=== PATIENT | female | born 1975 | race Caucasian/White ===

== ENCOUNTER → 2016-07-20 | Outpatient (CLI) | payer OTHER ==
[~2016-07-20] MED LIST: DIPH25CA5 PO
[2016-07-20 17:03] LABS: PROLACTIN 4.61 ng/mL
== END | disposition home or self-care (01) ==
LOC: C.LAB1850 15:07
PROVIDERS: ATTEND Obstetrics & Gynecology
DX: N97.9 Female infertility, unspecified (principal)

== ENCOUNTER → 2017-01-08 | Outpatient (CLI) | payer OTHER ==
[~2017-01-08] MED LIST changes: +BND25 PO; -DIPH25CA5 PO
[2017-01-08 15:35] LABS: HEMATOCRIT 43.9 % (37-47); MEAN CELL VOLUME 88.7 fL (80-100); MEAN CORPUSCULAR HEMOGLOBIN 30.9 pg (25-34); MEAN CORPUSCULAR HGB CONC 34.9 g/dl (32-36); MEAN PLATELET VOLUME 10.6 fL (7.4-10.4); PLATELET COUNT 246 K/uL (130-400); RED BLOOD COUNT 4.95 M/uL (4.2-5.4); WHITE BLOOD COUNT 5.75 K/uL (4.8-10.8)
[2017-01-08 16:19] LABS: RUBELLA SCREEN IgG (AT CCH) IMMUNE (IMMUNE)
== END | disposition home or self-care (01) ==
LOC: C.LAB1850 14:20
PROVIDERS: ATTEND Specialist
DX: Z13.21 Encounter for screening for nutritional disorder (principal); Z13.0 Encounter for screening for diseases of the blood and blood-forming organs and certain disorders involving the immune mechanism; Z11.9 Encounter for screening for infectious and parasitic diseases, unspecified; Z11.3 Encounter for screening for infections with a predominantly sexual mode of transmission

== ENCOUNTER → 2017-01-15 | Outpatient (CLI) | payer OTHER ==
[~2017-01-15] MED LIST changes: +MethylPREDNISolone HOME PACK 16 MG TAB PO SCH
--- NOTE | 2017-01-15 12:04 | DIAGNOSTIC IMAGING REPORT ---
HYSTEROSALPINGOGRAM CLINICAL HISTORY: FERTILITY TESTING. COMPARISON STUDY: No previous studies for comparison. Fluoroscopy time: 0.4 minutes. TECHNIQUE: Hysterosalpingogram was performed by Dr. Gonzalez. The cervix was cannulated and 30 cc of iodinated contrast was instilled into the uterine cavity. FINDINGS: 4 fluoroscopic images were obtained. Uterine morphology is normal. Both fallopian tubes were patent with free spillage bilaterally. Note was made of venous intravasation. IMPRESSION: 1. Patent bilateral fallopian tubes. 2. Incidental note of venous intravasation. Electronically signed by: Brad Cortez M.D. 01/15/2017 12:02 PM Dictated Date/Time: 01/15/2017 12:01 PM
--- NOTE | 2017-01-15 13:28 | OPERATIVE REPORT ---
DATE OF OPERATION: 01/15/2017 PREOPERATIVE DIAGNOSIS: Infertility. POSTOPERATIVE DIAGNOSIS: Same. PROCEDURE: Hysterosalpingogram. SURGEON: Dr. Gonzalez. RADIOLOGIST: Dr. Cortez. PROCEDURE IN DETAIL: The patient was identified verbally and by darrin and the procedure that was to be performed was confirmed. The patient had taken her preoperative doxycycline. She also notes that she has ALLERGY TO X-RAY DYE. She was instructed and given a Medrol Dosepak by Willi Tompkins. That allergy was identified, confirmed and the patient understands the risks of proceeding. Last menstrual period was January 06. The patient was placed in a frog leg position. Speculum was placed and cervix was cleaned out with Betadine. The anterior lip of the cervix was grasped with an Allis. The introducer was placed into the cervix and the patient was prepared for this study. The dye was injected into the uterus without difficulty and the patient tolerated the procedure well. The procedure was terminated when the appropriate pictures were taken. All instruments removed from the vagina and hemostasis was noted to be excellent. Upon sitting up, it was immediately noticed that the patient had some red areas underneath her ears bilaterally, spreading down underneath her chin, on her neck and a large red patch of redness on her chest. The patient does note that when she gets anxious and nervous, she does have red areas there; however, she inspected these in the mirror and thought they were a little bit more than what she normally has. She noted no itching, no shortness of breath, no chest pain, and no other concerns. The rest of her body was inspected. There were no other red patches noted. The patient was encouraged to continue her Medrol Dosepak as prescribed, to finish her doxycycline as prescribed. She will sit in the waiting room for the next hour to make sure that we do not have further increase in her red patches or develop itching and shortness of breath. If she does, then she was instructed to proceed immediately to the Emergency Department for evaluation. I attest to the content of the Intraoperative Record and any orders documented therein. Any exception s are noted below.
== END | disposition home or self-care (01) ==
LOC: C.RAD 10:36
PROVIDERS: ATTEND Obstetrics & Gynecology
DX: Z31.41 Encounter for fertility testing (principal)

== ENCOUNTER → 2017-04-26 | Outpatient (CLI) | payer OTHER ==
[~2017-04-26] MED LIST changes: -BND25 PO; +DIPH25CA5 PO; -MethylPREDNISolone HOME PACK 16 MG TAB PO SCH
== END | disposition home or self-care (01) ==
LOC: C.LAB1850 16:37
PROVIDERS: ATTEND Obstetrics & Gynecology
DX: Z32.00 Encounter for pregnancy test, result unknown (principal)

== ENCOUNTER → 2017-04-29 | Outpatient (CLI) | payer OTHER | END | disposition home or self-care (01) | LOC: C.LAB1850 15:05 | PROVIDERS: ATTEND Obstetrics & Gynecology | DX: O09.00 Supervision of pregnancy with history of infertility, unspecified trimester (principal) ==

== ENCOUNTER → 2017-05-23 | Outpatient (CLI) | payer OTHER | END | disposition home or self-care (01) | LOC: C.LABSPEC 14:10 | PROVIDERS: ATTEND Obstetrics & Gynecology | DX: O09.521 Supervision of elderly multigravida, first trimester (principal) ==

== ENCOUNTER → 2017-05-31 | Outpatient (CLI) | payer OTHER ==
[~2017-05-31] MED LIST changes: +CHOL1000 PO; +OMEG10007 PO; +PRENTAB26 PO
== END | disposition home or self-care (01) ==
LOC: C.PAPS 09:55
PROVIDERS: ATTEND Obstetrics & Gynecology
DX: Z01.419 Encounter for gynecological examination (general) (routine) without abnormal findings (principal)

== ENCOUNTER → 2017-06-03 | Outpatient (CLI) | payer OTHER ==
[2017-06-03 14:31] LABS: HEMATOCRIT 41.9 % (37-47); HEMOGLOBIN 14.3 g/dL (12.0-16.0); MEAN CELL VOLUME 86.6 fL (80-100); MEAN CORPUSCULAR HEMOGLOBIN 29.5 pg (25-34); MEAN CORPUSCULAR HGB CONC 34.1 g/dl (32-36); MEAN PLATELET VOLUME 10.4 fL (7.4-10.4); PLATELET COUNT 227 K/uL (130-400); RED CELL DISTRIBUTION WIDTH CV 13.4 % (11.5-14.5); RED CELL DISTRIBUTION WIDTH SD 42.8 fL (36.4-46.3); WHITE BLOOD COUNT 7.49 K/uL (4.8-10.8)
== END | disposition home or self-care (01) ==
LOC: C.LAB1850 13:01
PROVIDERS: ATTEND Obstetrics & Gynecology
DX: Z31.41 Encounter for fertility testing (principal); O09.521 Supervision of elderly multigravida, first trimester; O02.1 Missed abortion

== ENCOUNTER → 2017-06-10 | Day surgery (SDC) | payer OTHER ==
[2017-06-04 13:50] VITALS: Ht 165.1 cm; Wt 130.4 kg
[~2017-06-10] VITALS: Ht 165.1 cm; Wt 130.4 kg
[~2017-06-10] MED LIST changes: -CHOL1000 PO; +DEXAMETHASONE SOD INJ 4 MG/ML VIAL ONE; +DOXYCYCLINE HYCLATE 100 MG CAP PO SCH; +FENTANYL CITRATE INJ 50 MCG/1 ML 2 ML VIAL ONE; +LACTATED RINGER'S 1000ML 1,000 ML IV SCH; +LIDOCAINE HCL 2% 2 ML VIAL (20MG/ML) ONE; +MIDAZOLAM HCL 1 MG/ML 2ML VIAL ONE; -OMEG10007 PO; +ONDANSETRON INJ 2 MG/ML 2 ML VIAL ONE; -PRENTAB26 PO; +PROPOFOL IV EMULSION 10 MG/ML 20 ML VIAL IV ONE
--- NOTE | 2017-06-10 10:00 | DIAGNOSTIC IMAGING REPORT ---
TRANSVAGINAL CLINICAL HISTORY: 42 years-old Female presenting with missed miscarriage, history of section and dilatation curettage, . TECHNIQUE: Real-time grayscale and M-mode Doppler ultrasound imaging of the pelvis was performed first using a transabdominal probe and subsequently transvaginal for better characterization. Color and spectral Doppler ultrasound imaging of the adnexa was also performed. COMPARISON: None. FINDINGS: Uterus: The uterus measures 11.0 x 5.6 x 8.3 cm and is anteverted. Endometrium heterogeneous and thickened, measuring 21 mm in thickness. Somewhat diffuse color Doppler flow along the anterior fundal aspect. 4-5 mm irregular, complex cystic focus in the anterior endometrium. Round hypodense 2.7 x 2.5 x 2.4 cm lesion along the left posterior lateral uterine wall likely fibroid. Cervix long and closed. Right adnexum: Right ovary normal. Right ovary measures 2.7 x 1.6 x 2.0 cm. Normal color Doppler flow and arterial and venous waveforms within the ovarian parenchyma. Left adnexum: Left ovary normal. Left ovary measures 1.6 x 1.4 x 2.1 cm. Normal color Doppler flow and arterial and venous waveforms within the ovarian parenchyma. Other: No free fluid. IMPRESSION: Somewhat diffusely hyperemic and thickened endometrium likely indicating a decidual reaction. Subcentimeter avascular cystic region in the anterior endometrium may represent minimal residual products of conception or blood products. These findings are most likely lead generation representative of a completed miscarriage. Electronically signed by: Anil Matute M.D. 06/10/2017 9:59 AM Dictated Date/Time: 06/10/2017 9:52 AM
--- NOTE | 2017-06-10 11:05 | Progress Note ---
Progress Note Date of Service Jun 10, 2017. Progress Note Patient notes that she got very crampy over the weekend brannon Saturday and passed what she thinks is the GS. she notes her bleeding is much slowed at this time and less than a period. Ultrasound obtained and no GS noted in the uterus. EM is thickened to 21mm but consistent with sab. Bleeding decreased. Plan to cancel procedure. Plan to send pocs for hopeful chromosomal evaluation. Plan weekly quants to 0. With f/u in about one month.Will draw quant today. Bleeding precautions reviewed.
--- NOTE | 2017-06-10 14:43 | Anesthesiology Progress Note ---
Anesthesia Progress Note Date of Service Jun 10, 2017. Progress Notes The patient was scheduled for D&E with Dr. Gonzalez today for missed AB, however on arrival patient stated that she believed she may have passed the gestational sac. Dr. Gonzalez came and evaluated that patient and stated that the ultrasound obtained and no GS noted in the uterus. Therefore, the procedure was cancelled.
== END | disposition home or self-care (01) ==
LOC: C.ACU 08:49
PROVIDERS: ATTEND Obstetrics & Gynecology
DX: O02.1 Missed abortion (principal); Z53.8 Procedure and treatment not carried out for other reasons

== ENCOUNTER → 2017-06-17 | Outpatient (CLI) | payer OTHER ==
[~2017-06-17] MED LIST changes: -DEXAMETHASONE SOD INJ 4 MG/ML VIAL ONE; -DOXYCYCLINE HYCLATE 100 MG CAP PO SCH; -FENTANYL CITRATE INJ 50 MCG/1 ML 2 ML VIAL ONE; -LACTATED RINGER'S 1000ML 1,000 ML IV SCH; -LIDOCAINE HCL 2% 2 ML VIAL (20MG/ML) ONE; -MIDAZOLAM HCL 1 MG/ML 2ML VIAL ONE; -ONDANSETRON INJ 2 MG/ML 2 ML VIAL ONE; -PROPOFOL IV EMULSION 10 MG/ML 20 ML VIAL IV ONE
== END | disposition home or self-care (01) ==
LOC: C.LAB1850 15:32
PROVIDERS: ATTEND Obstetrics & Gynecology
DX: O02.1 Missed abortion (principal)

== ENCOUNTER → 2017-06-24 | Outpatient (CLI) | payer OTHER | END | disposition home or self-care (01) | LOC: C.LAB1850 16:48 | PROVIDERS: ATTEND Obstetrics & Gynecology | DX: O02.1 Missed abortion (principal); Z3A.00 Weeks of gestation of pregnancy not specified ==

== ENCOUNTER → 2017-07-01 | Outpatient (CLI) | payer OTHER | END | disposition home or self-care (01) | LOC: C.LAB1850 08:40 | PROVIDERS: ATTEND Obstetrics & Gynecology | DX: O02.1 Missed abortion (principal) ==